=== PATIENT | female | born 1995 | race Two or more races ===

== ENCOUNTER 2018-04-14 19:34 | Inpatient (IN) | payer OTHER ==
[~2018-04-14] VITALS: Ht 167.6 cm; Wt 65.8 kg
--- NOTE | 2018-04-14 19:36 | NUR ---
PT TO ER BED 11. BIBRA FROM HOME C/O PT AMS X 3 HOURS PER FAMILY. PER EMS FSBS "HI". NOTED PT SINUS TACH ON THE MONITOR AT 142, RESP SHALLOW/TACHYPNEIC AT 32, B/P 127/69, RECTAL TEMP 95.8. PT IS UNRESPONSIVE AT THIS TIME. MD AT BEDSIDE FOR EVAL.
--- NOTE | 2018-04-14 19:38 | NUR ---
20G IV TO R HAND X 1 ATTEMPT USING ASEPTIC TECH. IV FLUSHES EASILY WITH NS, NO S/S INFILTRATION NOTED AT THIS TIME.
--- NOTE | 2018-04-14 19:40 | NUR ---
PT FSBS AT BEDSIDE ">600". MD AT BEDSIDE AND AWARE.
--- NOTE | 2018-04-14 19:41 | NUR ---
18G IV TO L AC X 1 ATTEMPT USING ASEPTIC TECH, BLOOD HANDED OVER TO THE LAB AT BEDSIDE. IV FLUSHES EASILY WITH NS, NO S/S INFILTRATION NOTED AT THIS TIME.
--- NOTE | 2018-04-14 19:50 | NUR ---
RT AT BEDSIDE TO DRAW ABG PER MD ORDERS.
[2018-04-14 20:00] LABS: ABG BASE EXCESS -34.4 mmol/L; ABG OXYGEN SATURATION 97.7 % (92.0-98.5); ABG PCO2 10.7 mmHg (35.0-45.0); ABG PH 6.716 (7.350-7.450); ABG PO2 142.9 mmHg (75.0-100.0); COHb 0.3 % (0.5-1.5); MetHb 0.8 % (0.0-1.5); O2Hb 96.6 % (94.0-97.0); SITE, ABG Right Radial; VENT MODE, BG RM AIR
[2018-04-14] MEDS ORDERED: IV NS 0.9% 1,000 ML IV ONE ×2 (20:00→20:30)
[2018-04-14] MEDS ORDERED: IV NS 0.9% 1,000 ML BAG IV ONE (20:00)
[2018-04-14] MEDS ORDERED: ONDANSETRON HCL/PF 4 MG/2 ML VIAL IVP ONE (20:00)
[2018-04-14] MEDS ORDERED: ONDANSETRON HCL/PF 4 MG/2 ML VIAL ONE (20:04)
[2018-04-14] MEDS ORDERED: SODIUM BICARBONATE SYR 50 MEQ/50 ML DISP.SYRIN ONE ×2 (20:09→23:07)
[2018-04-14 20:10] LABS: ALANINE AMINOTRANSFERASE 17 U/L (12-78); ALBUMIN 4.7 g/dL (3.4-5.0); ALKALINE PHOSPHATASE 217 U/L (46-116); ASPARTATE AMINOTRANSFERASE 11 U/L (15-37); BILIRUBIN,DIRECT 0.1 mg/dL (0.0-0.2); BILIRUBIN,TOTAL 0.3 mg/dL (0.2-1.0); CALCIUM, SERUM 10.1 mg/dL (8.5-10.1); CREATININE 2.2 mg/dL (0.6-1.3); POTASSIUM 5.6 mmol/L (3.5-5.1); TOTAL PROTEIN, SERUM 10.1 g/dL (6.4-8.2); UREA NITROGEN, BLOOD 37 mg/dL (7-18)
--- NOTE | 2018-04-14 20:12 | NUR ---
CALLED [facility] FOR PANEL CALL AND DR BOWDEN WAS PAGED.
[2018-04-14 20:15] LABS: GLUCOSE 849 mg/dL (74-106)
[2018-04-14] MEDS ORDERED: INSULIN REGULAR, HUMAN 100 UNIT in IV NS 0.9% 99 ML IV STA ×2 (20:17)
[2018-04-14 20:18] LABS: APPEARANCE,URINE CLEAR (CLEAR); BILIRUBIN,URINE NEGATIVE (NEGATIVE); BLOOD, URINE 3+ Ery/uL (NEGATIVE); COLOR,URINE YELLOW (YELLOW); KETONES,URINE 3+ (NEGATIVE); LEUKOCYTE ESTERASE ,URINE NEGATIVE (NEGATIVE); NITRITE, URINE NEGATIVE (NEGATIVE); PH,URINE 5.5 (5.0-8.0); PROTEIN,URINE 1+ mg/dl (NEGATIVE); UGLUCOSE 3+ mg/dL (NEGATIVE); UROBILINOGEN,URINE 0.2 EU/dL (0.2)
--- NOTE | 2018-04-14 20:21 | NUR ---
16FR F/C INSERTED USING INSTRUCTIONAL COORDINATOR, 1800ML CLEAR URINE RETURN NOTED. URINE SPECIMEN OBTAINED AND SENT TO THE LAB.
[2018-04-14] MEDS ORDERED: INSULIN REGULAR, HUMAN 100 UNIT/ML 10 ML VIAL ONE (20:22)
[2018-04-14 20:27] LABS: HEMATOCRIT 57 % (33-45); HEMOGLOBIN 17.6 g/dL (11.5-14.8); MEAN CORPUSCULAR VOLUME 97 fL (82-100); RED BLOOD CELL COUNT(AUTO) 5.89 MIL/uL (4.0-5.2); WHITE BLOOD COUNT (AUTO) 35.2 K/uL (4.3-11.0)
[2018-04-14 20:28] LABS: BASOPHILS % (AUTO) 0.7 % (0.0-2.0); EOSINOPHILS % (AUTO) 0.1 % (0.0-6.0); LYMPHOCYTES % (AUTO) 7.4 % (20.0-44.0); MEAN CORPUSCULAR HEMOGLOBIN 30 PG (26.0-33.0); MEAN CORPUSCULAR HGB CONC 31 g/dl (31.0-36.0); MONOCYTES % (AUTO) 7.6 % (2.0-12.0); NEUTROPHILS # (AUTO) 29.6 /CMM (1.8-8.9); NEUTROPHILS % (AUTO) 84.2 % (43.0-81.0); PLATELET COUNT (AUTO) 482 /CMM (150-450); RDW COEFFICIENT OF VARIATION 14.5 (11.5-15.0)
[2018-04-14 20:29] LABS: BASOPHILS # (AUTO) 0.2 /CMM (0.0-0.2); CHLORIDE 91 mmol/L (98-107); LYMPHOCYTES # (AUTO) 2.6 /CMM (0.8-4.8); MONOCYTES # (AUTO) 2.7 /CMM (0.1-1.30); SODIUM SERUM 133 mmol/L (136-145)
[2018-04-14 20:30] LABS: CARBON DIOXIDE 3 mmol/L (21-32)
[2018-04-14] MEDS ORDERED: SODIUM BICARBONATE 5 MEQ/10 ML DISP.SYRIN IV ONE (20:30)
[2018-04-14 20:31] LABS: BAND % (MANUAL) 9 % (0.0-5.0); LYMPHOCYTES % (MANUAL) 5 % (16-48); MONOCYTES % (MANUAL) 10 % (0-11.0); NEUTROPHILS % (MANUAL) 74 (42-76); REACTIVE LYMPHOCYTES 2 % (0-0)
[2018-04-14 20:36] LABS: BACTERIA,URINE None seen /HPF (None Seen); RBC,URINE 0-2 /HPF (0-2); SQUAMOUS EPITHELIAL CELL,UR 0-2 /HPF (None Seen); WBC,URINE 0-2 /HPF (0-3)
[2018-04-14 20:37] LABS: ALCOHOL, BLOOD < 3 mg/dL (0-0)
[2018-04-14 20:37] LABS: FINE GRANULAR CASTS,URINE Few /LPF (None Seen); URINE AMORPHOUS URATE Many /HPF (None Seen)
[2018-04-14] MEDS ORDERED: TRAZ-182 PO (20:57)
[2018-04-14] MEDS ORDERED: INSU100I24 SQ (20:57)
[2018-04-14] MEDS ORDERED: PARO20TA7 PO (21:01)
[2018-04-14] MEDS ORDERED: ENAL5TAB PO (21:01)
--- NOTE | 2018-04-14 21:12 | NUR ---
REPORT GIVEN TO BALDO CAVAZOS FOR CONTINUATION OF CARE.
--- NOTE | 2018-04-14 21:17 | NUR ---
RN NOTES REPORT RECEIVED FROM LENS INSERTERDIRK VALENTINE
--- NOTE | 2018-04-14 21:25 | NUR ---
RN NOTES PATIENT ARRIVED IN THE UNIT VIA GURNEY. CURRENTLY LETHARGIC, ONLY RESPONSIVE TO PAIN. PT IS SINUS TACH ON THE MONITOR, HR 120-130'S. ON ROOM AIR SATURATING 100%, TACHYPNEIC WITH SHALLOW BREATHING BUT NO OTHER S/S OF RESP DISTRESS. SKIN CHECKED WITH 2ND RN MARYAM. SMITH CATH INTACT. RIGHT HAND 20G AND LEFT AC 18G WITH BICARB 100MEQ + 1/2NS 500MLS @ 250MLS/HR AND INSULIN DRIP @ 8.25MLS/HR; IV LINES FLUSHED AND PATENT, NO S/S OF INFILTRATION/INFECTION, DRESSINGS CDI. WILL RECHECK BLOOD SUGAR. BED LOW AND LOCKED, SIDERAILS UP, CALL LIGHT WITHIN REACH, BED ALARM ON. WILL CLOSELY MONITOR
--- NOTE | 2018-04-14 21:25 | NUR ---
PT TRANSPORTED VIA STRETCHER TO ICU 261 ON VOCATIONAL REHABILITATION TECHNICIAN WITH RN PER ACLS PROTOCOL. VSS.
[2018-04-14 21:35] VITALS: BP 133/98
[2018-04-14 21:36] VITALS: BP 133/98
[2018-04-14 22:00] VITALS: BP 88/57
[2018-04-14 22:02] VITALS: BP 95/59
[2018-04-14] MEDS ORDERED: ENAL20TA70 PO (22:04)
[2018-04-14] MEDS ORDERED: INSU100I4 SQ (22:04)
[2018-04-14] MEDS ORDERED: Sodium Bicarbonate 100 MEQ in IV 1/2NS 1000 ML 1,000 ML IV PRN (22:30)
[2018-04-14] MEDS ORDERED: ACETAMINOPHEN 325 MG TABLET PO PRN (22:30)
[2018-04-14] MEDS ORDERED: MORPHINE SULFATE INJ 2 MG/ML DISP.SYRIN IV PRN (22:30)
[2018-04-14 22:58] VITALS: BP 88/71
--- NOTE | 2018-04-14 23:00 | NUR ---
RN NOTES CLARIFIED THE NEW INSULIN DRIP ORDER WITH DR BOWDEN. PER MD, INSULIN DRIP ON DKA PROTOCOL USING ALGORITHM 1. WILL INITIATE
[2018-04-14 23:01] VITALS: BP 95/57
[2018-04-14 23:02] LABS: EOSINOPHILS % (AUTO) 0.1 % (0.0-6.0); HEMATOCRIT 49 % (33-45); HEMOGLOBIN 15.6 g/dL (11.5-14.8); MEAN CORPUSCULAR HEMOGLOBIN 30 PG (26.0-33.0); MEAN CORPUSCULAR HGB CONC 32 g/dl (31.0-36.0); MEAN CORPUSCULAR VOLUME 94 fL (82-100); MONOCYTES % (AUTO) 2.1 % (2.0-12.0); NEUTROPHILS % (AUTO) 89.4 % (43.0-81.0); PLATELET COUNT (AUTO) 347 /CMM (150-450); RDW COEFFICIENT OF VARIATION 13.5 (11.5-15.0); RED BLOOD CELL COUNT(AUTO) 5.18 MIL/uL (4.0-5.2); WHITE BLOOD COUNT (AUTO) 31.9 K/uL (4.3-11.0)
[2018-04-14 23:03] LABS: BASOPHILS # (AUTO) 0.3 /CMM (0.0-0.2); LYMPHOCYTES # (AUTO) 2.3 /CMM (0.8-4.8); LYMPHOCYTES % (AUTO) 7.4 % (20.0-44.0); MONOCYTES # (AUTO) 0.7 /CMM (0.1-1.30); NEUTROPHILS # (AUTO) 28.5 /CMM (1.8-8.9)
[2018-04-14] MEDS: INSULIN REGULAR, HUMAN 100 UNIT in IV NS 0.9% 99 ML IV PRN ×2 (23:15)
[2018-04-14 23:16] LABS: ALANINE AMINOTRANSFERASE 16 U/L (12-78); ALBUMIN 3.9 g/dL (3.4-5.0); ALKALINE PHOSPHATASE 172 U/L (46-116); ASPARTATE AMINOTRANSFERASE 12 U/L (15-37); BILIRUBIN,TOTAL 0.3 mg/dL (0.2-1.0); CALCIUM, SERUM 8.2 mg/dL (8.5-10.1); CHLORIDE 105 mmol/L (98-107); CREATININE 1.7 mg/dL (0.6-1.3); MAGNESIUM 2.1 mg/dL (1.8-2.4); PHOSPHORUS 3.2 mg/dL (2.5-4.9); POTASSIUM 3.5 mmol/L (3.5-5.1); SODIUM SERUM 141 mmol/L (136-145); TOTAL PROTEIN, SERUM 8.3 g/dL (6.4-8.2); UREA NITROGEN, BLOOD 35 mg/dL (7-18)
[2018-04-14 23:25] LABS: CARBON DIOXIDE 5 mmol/L (21-32); GLUCOSE 522 mg/dL (74-106)
[2018-04-14] MEDS: METOCLOPRAMIDE HCL 10 MG/2 ML VIAL IV SCH (23:25)
[2018-04-14] MEDS ORDERED: INSULIN GLARGINE, 100 UNIT/ML CARTRIDGE SQ SCH (23:30)
[2018-04-14 23:39] LABS: ABG BASE EXCESS -28.7 mmol/L; ABG OXYGEN SATURATION 97.7 % (92.0-98.5); ABG PCO2 8.2 mmHg (35.0-45.0); ABG PH 6.946 (7.350-7.450); ABG PO2 126.9 mmHg (75.0-100.0); COHb 0.3 % (0.5-1.5); MetHb 0.9 % (0.0-1.5); O2Hb 96.5 % (94.0-97.0); SITE, ABG Right Radial; VENT MODE, BG ROOM AIR
[2018-04-14 23:52] LABS: LIPASE 6498 U/L (73-393)
[2018-04-15] VITALS (25 sets, daily range): BP systolic 102–126; BP diastolic 29–76
[2018-04-15] MEDS ORDERED: POTASSIUM CHLORIDE 20 MEQ TAB.PRT.SR PO ONE
[2018-04-15] MEDS ORDERED: VANCOMYCIN 1 GM in IV NS 0.9% 250 ML IV ONE ×2
--- NOTE | 2018-04-15 00:15 | NUR ---
RN NOTES DR BOWDEN IN THE UNIT TO ASSESS THE PATIENT AND TO TALK TO THE FAMILY
[2018-04-15] MEDS ORDERED: VANCOMYCIN 1 GM VIAL ONE (00:31)
[2018-04-15] MEDS ORDERED: PIPERACILLIN /TAZOBACTAM 3.375 G VIAL IV ONE ×2 (00:59→04:46)
[2018-04-15] MEDS ORDERED: ACETAMINOPHEN 650 MG/SUPP.RECT RC PRN (01:00)
[2018-04-15] MEDS: PIPERACILLIN /TAZOBACTAM 3.375 G in IV NS 0.9% 50 ML IV SCH ×2 (01:02→04:50)
[2018-04-15] MEDS: POTASSIUM CL. PREMIX PERIPHER. 50 ML IV SCH ×9 (01:27→21:53)
--- NOTE | 2018-04-15 02:21 | NUR ---
RN NOTES PATIENT APPEARS AGITATED AND IN PAIN. CURRENTLY CRYING, MOANING, AND HEART RATE IS GOING UP TO 140'S. WILL ADMINISTER PRN MORPHINE 2MG IVP
[2018-04-15] MEDS: METOCLOPRAMIDE HCL 10 MG/2 ML VIAL IV SCH ×4 (04:49→22:33)
[2018-04-15 05:16] LABS: HEMATOCRIT 44 % (33-45)
[2018-04-15 05:17] LABS: RDW COEFFICIENT OF VARIATION 14.7 (11.5-15.0)
[2018-04-15 05:20] LABS: WHITE BLOOD COUNT (AUTO) 27.7 K/uL (4.3-11.0)
[2018-04-15 05:21] LABS: HEMOGLOBIN 14.7 g/dL (11.5-14.8); MEAN CORPUSCULAR HEMOGLOBIN 30 PG (26.0-33.0); MEAN CORPUSCULAR VOLUME 90 fL (82-100); RED BLOOD CELL COUNT(AUTO) 4.89 MIL/uL (4.0-5.2)
[2018-04-15 05:22] LABS: BASOPHILS % (AUTO) 0.7 % (0.0-2.0); LYMPHOCYTES % (AUTO) 8.2 % (20.0-44.0); MEAN CORPUSCULAR HGB CONC 33 g/dl (31.0-36.0); MONOCYTES % (AUTO) 11.2 % (2.0-12.0); NEUTROPHILS % (AUTO) 79.9 % (43.0-81.0); PLATELET COUNT (AUTO) 334 /CMM (150-450)
[2018-04-15 05:23] LABS: BASOPHILS # (AUTO) 0.2 /CMM (0.0-0.2); LYMPHOCYTES # (AUTO) 2.3 /CMM (0.8-4.8); MONOCYTES # (AUTO) 3.1 /CMM (0.1-1.30); NEUTROPHILS # (AUTO) 22.2 /CMM (1.8-8.9)
--- NOTE | 2018-04-15 05:30 | NUR ---
RN NOTES NOTIFIED DR BOWDEN OF CURRENT BLOOD SUGAR 213. PER , D/C CURRENT IVF AND START D5 1/2NS @ 125MLS/HR
[2018-04-15 05:45] LABS: ALBUMIN 3.5 g/dL (3.4-5.0); BILIRUBIN,TOTAL 0.5 mg/dL (0.2-1.0); CALCIUM, SERUM 8.9 mg/dL (8.5-10.1); CREATININE 1.7 mg/dL (0.6-1.3); MAGNESIUM 1.8 mg/dL (1.8-2.4); POTASSIUM 3.4 mmol/L (3.5-5.1); TOTAL PROTEIN, SERUM 7.6 g/dL (6.4-8.2)
[2018-04-15] MEDS ORDERED: PIPERACILLIN /TAZOBACTAM 3.375 G in IV NS 0.9% 50 ML IV SCH (06:00)
[2018-04-15 06:08] LABS: PHOSPHORUS 1.1 mg/dL (2.5-4.9)
--- NOTE | 2018-04-15 06:30 | NUR ---
RN CLOSING NOTES PT REMAINS STABLE OF THE MOMENT. INSULIN DRIP IS CURRENTLY 1UNIT/HR. D5 1/2 NS WITH 1AMP BICARB @ 125MLS/HR TO BE STARTED. ALL DUE MEDS GIVEN, AM CARE PROVIDED. WILL ENDORSE BARBRA TO AM RN
[2018-04-15] MEDS ORDERED: SODIUM BICARBONATE SYR 50 MEQ/50 ML DISP.SYRIN ONE (06:31)
[2018-04-15] MEDS: Sodium Bicarbonate 50 MEQ in IV D5/0.45 NACL 1,000 ML IV SCH ×3 (06:42→23:46)
[2018-04-15 06:48] LABS: ABG BASE EXCESS -16.3 mmol/L; ABG OXYGEN SATURATION 97.2 % (92.0-98.5); ABG PCO2 17.9 mmHg (35.0-45.0); ABG PH 7.269 (7.350-7.450); ABG PO2 101.9 mmHg (75.0-100.0); AaDO2 26.4 mmHg; COHb 0.3 % (0.5-1.5); MetHb 0.7 % (0.0-1.5); O2Hb 96.2 % (94.0-97.0); SITE, ABG Right Radial; VENT MODE, BG ROOM AIR
--- NOTE | 2018-04-15 07:30 | NUR ---
ICU/RN: Pt received, lethargic, responds to name and touch, IVF infusing well. Breathing even and unlabored, O2 sat 99-100% on RA. FC draining clear, yellow urine to gravity. Safety measures in place, will cont to monitor pt.
[2018-04-15 07:33] LABS: CHOLESTEROL 191 mg/dL (<200); HDL CHOLESTEROL 49 mg/dL (40-60); LDL 121 mg/dL (0-99); TRIGLYCERIDES 149 mg/dL (30-150)
[2018-04-15 07:46] LABS: INR 0.91 (0.87-1.13)
[2018-04-15] MEDS: BLOOD SUGAR DIAGNOSTIC 1 EACH STRIP IN SCH ×16 (08:06→23:37)
[2018-04-15] MEDS: PANTOPRAZOLE 40 MG VIAL IV SCH (08:38)
[2018-04-15] MEDS: Potassium Phosphate meq 11 MEQ in IV D5W 100 ML IV SCH ×2 (08:38→10:44)
[2018-04-15 09:33] LABS: CALCIUM, SERUM 8.5 mg/dL (8.5-10.1); CREATININE 1.6 mg/dL (0.6-1.3)
[2018-04-15] MEDS: PIPERACILLIN /TAZOBACTAM 3.375 G in IV D5W 50 ML IV SCH ×3 (11:01→23:47)
[2018-04-15 12:15] LABS: BAND % (MANUAL) 15 % (0.0-5.0); LYMPHOCYTES % (MANUAL) 13 % (16-48); MONOCYTES % (MANUAL) 13 % (0-11.0); NEUTROPHILS % (MANUAL) 59 (42-76)
[2018-04-15 12:41] LABS: CALCIUM, SERUM 8.5 mg/dL (8.5-10.1); CREATININE 1.5 mg/dL (0.6-1.3); POTASSIUM 3.5 mmol/L (3.5-5.1)
--- NOTE | 2018-04-15 13:15 | NUR ---
ICU/RN: Cary Palencia, MACHINE PRESSER at bedside; updated on pt status. Labs and replacements discussed. Family at bedside. New orders noted and carried out.
[2018-04-15 15:32] LABS: APPEARANCE,URINE CLEAR (CLEAR); BILIRUBIN,URINE 1+ (NEGATIVE); BLOOD, URINE 2+ Ery/uL (NEGATIVE); COLOR,URINE YELLOW (YELLOW); KETONES,URINE 3+ (NEGATIVE); LEUKOCYTE ESTERASE ,URINE NEGATIVE (NEGATIVE); NITRITE, URINE NEGATIVE (NEGATIVE); PH,URINE 5.5 (5.0-8.0); PROTEIN,URINE TRACE mg/dl (NEGATIVE); UGLUCOSE 1+ mg/dL (NEGATIVE); UROBILINOGEN,URINE 0.2 EU/dL (0.2)
--- NOTE | 2018-04-15 16:37 | NUR ---
ICU/RN: Called lab regarding 1630 BMP draw, per director labor standards, cancelled because it is a duplicate. Informed them that it is not a duplicate, but a timed order. Re-entered as stat order, awaiting dewaxer arrival for blood draw.
--- NOTE | 2018-04-15 17:17 | NUR ---
ICU/RN: Called lab to f/u stat blood draw. Per tech, homicide squad lieutenant is on the way.
[2018-04-15 17:40] LABS: CALCIUM, SERUM 8.8 mg/dL (8.5-10.1); CREATININE 1.7 mg/dL (0.6-1.3)
--- NOTE | 2018-04-15 17:45 | NUR ---
ICU/RN: Dr Cardona in for ID consult; updated on temps, cultures sent, noted with facial redness to R side; photographed.
[2018-04-15] MEDS: ONDANSETRON HCL/PF 4 MG/2 ML VIAL IVP PRN ×2 (17:49→22:33)
[2018-04-15] MEDS ORDERED: FEE PK DOSING 1 MIN EA MC ONE (17:50)
[2018-04-15] MEDS: VANCOMYCIN 0.75 GM in IV NS 0.9% 250 ML IV SCH (19:06)
[2018-04-15 20:44] LABS: CALCIUM, SERUM 8.4 mg/dL (8.5-10.1); CREATININE 1.7 mg/dL (0.6-1.3); POTASSIUM 3.2 mmol/L (3.5-5.1)
--- NOTE | 2018-04-15 21:00 | NUR ---
REC'D PT. IN BED W/EYES CLOSED. PT.IS LETHARGIC, BUT WHEN AWOKEN, PT. MOANS & STARTS YELLING FOR "WATER". PT'S FAMILY AT BS. PT. HAS BEEN A GEOFF SINCE 11 YRS OLD. PT. CANNOT BE REORIENTED DUE TO HER LOC. SBP'S ARE ELEVATED WHEN PT. IS REPOSITIONED OR AWOKEN. ST/TEENS. PT.IS ON ROOM AIR & LUNG RODRIGUEZ ARE CLEAR TO AUSC. ACCU CHECKS Q ONE HR. BMP'S Q 4 HRS. LOW GRADE TEMPS NOTED.(RECTALLY). SKIN INTACT, EXCEPT FACE IS FLUSHED. SMITH CATH TO GRAVITY. LAST RUN OF KCL ADM. ALL PIV'S ARE PATENT TO FLUSH. CONT. POC.
[2018-04-15 21:37] LABS: BACTERIA,URINE Rare /HPF (None Seen); SQUAMOUS EPITHELIAL CELL,UR Rare /HPF (None Seen); URIC ACID CRYSTALS,URINE Few /HPF (None Seen); WBC,URINE 0-3 /HPF (0-3)
[2018-04-15 21:38] LABS: YEAST,URINE Few /HPF (None Seen)
[2018-04-15 23:06] LABS: CALCIUM, SERUM 8.4 mg/dL (8.5-10.1); CREATININE 1.7 mg/dL (0.6-1.3); POTASSIUM 3.1 mmol/L (3.5-5.1)
[2018-04-16] VITALS (26 sets, daily range): BP systolic 85–147; BP diastolic 38–81
[2018-04-16] MEDS: BLOOD SUGAR DIAGNOSTIC 1 EACH STRIP IN SCH ×20 (00:16→23:00)
[2018-04-16] MEDS: ONDANSETRON HCL/PF 4 MG/2 ML VIAL IVP PRN ×2 (03:47→08:22)
[2018-04-16] MEDS: METOCLOPRAMIDE HCL 10 MG/2 ML VIAL IV SCH ×4 (03:48→22:53)
[2018-04-16 05:07] LABS: HEMATOCRIT 37 % (33-45); HEMOGLOBIN 12.6 g/dL (11.5-14.8); MEAN CORPUSCULAR HEMOGLOBIN 30 PG (26.0-33.0); MEAN CORPUSCULAR HGB CONC 34 g/dl (31.0-36.0); MEAN CORPUSCULAR VOLUME 89 fL (82-100); PLATELET COUNT (AUTO) 278 /CMM (150-450); RDW COEFFICIENT OF VARIATION 12.8 (11.5-15.0); RED BLOOD CELL COUNT(AUTO) 4.21 MIL/uL (4.0-5.2); WHITE BLOOD COUNT (AUTO) 14.3 K/uL (4.3-11.0)
[2018-04-16 05:08] LABS: BASOPHILS % (AUTO) 0.4 % (0.0-2.0); EOSINOPHILS % (AUTO) 0.2 % (0.0-6.0); LYMPHOCYTES % (AUTO) 7.9 % (20.0-44.0); MONOCYTES % (AUTO) 10.5 % (2.0-12.0); NEUTROPHILS % (AUTO) 81.2 % (43.0-81.0)
[2018-04-16 05:13] LABS: CREATININE 1.7 mg/dL (0.6-1.3)
[2018-04-16 05:14] LABS: POTASSIUM 2.8 mmol/L (3.5-5.1)
[2018-04-16 05:17] LABS: MAGNESIUM 1.5 mg/dL (1.8-2.4); PHOSPHORUS 1.5 mg/dL (2.5-4.9)
[2018-04-16] MEDS: PIPERACILLIN /TAZOBACTAM 3.375 G in IV D5W 50 ML IV SCH ×4 (05:34→23:08)
[2018-04-16] MEDS: VANCOMYCIN 0.75 GM in IV NS 0.9% 250 ML IV SCH (06:29)
[2018-04-16] MEDS: INSULIN REGULAR, HUMAN 100 UNIT in IV NS 0.9% 99 ML IV PRN ×8 (06:37→23:04)
--- NOTE | 2018-04-16 06:45 | NUR ---
SIMPLEX PRINTER INSTALLER - PT. CONT. TO REMAIN LETHARGIC. Q ONE HR BS'S NOTED. INSULIN GTT. CURRENTLY AT ONE UNIT/HR. ALL IVF'S INFUSING WELL. NO S/S OF INFILTRATION. PT. IS VERY RESTLESS & MOVING ALL OVER BED. 3 BEDBATHS ADM. IN SHIFT. VSS. PT'S BODY IS VERY WARM/HOT TO TOUCH. WHEN STAFF APPRAISER & BONDERIZER OPERATOR ATTEMPTED TO PLACE COOL TOWELS UPON HER, PT. BECAME VERY UPSET & SCREECHING ALOUD. PT. CALMS DOWN SOON YOU STOP ADL'S. PT.HAD N&V FOR A TOTAL OF 4 TIMES. ZOFRAN/REGLAN ADM. X 2 IN 12HR.SHIFT. OTHERWISE, PT.IS RESTING W/EYES CLOSED. CONT.POC. VERBAL REPORT ENDORSED TO HEATHER CAVAZOS.
--- NOTE | 2018-04-16 07:10 | NUR ---
RN INITIAL NOTES RECEIVED PT A/OX1, DOZES ON AND OFF. ON ROOM AIR. NO RESPIRATORY DISTRESS NOTED. NO SOB NOTED. NO SIGNS OF PAIN NOTED. IV LINES PLACE. ON INSULIN DRIP AT 2UNITS/HR. BLOOD SUGAR CHECK Q1. BMP Q4. ON D5 1/2 NS + SODIUM BICARB 50MEQ AT 125ML/HR. WILL MONITOR FOR EPISODE OF N/V. FC IN PLACE. NO HEMATURIA NOTED. WILL CLOSELY MONITOR.
[2018-04-16] MEDS: PANTOPRAZOLE 40 MG VIAL IV SCH (08:20)
[2018-04-16] MEDS: Sodium Bicarbonate 50 MEQ in IV D5/0.45 NACL 1,000 ML IV SCH (08:32)
[2018-04-16] MEDS ORDERED: Sodium Bicarbonate 50 MEQ in IV D5/0.45 NACL 1,000 ML IV PRN (09:37)
[2018-04-16 10:01] LABS: CALCIUM, SERUM 8.8 mg/dL (8.5-10.1); CREATININE 1.7 mg/dL (0.6-1.3)
[2018-04-16 10:06] LABS: POTASSIUM 2.5 mmol/L (3.5-5.1)
--- NOTE | 2018-04-16 10:15 | NUR ---
RN NOTES CALLED KELLY MILNER DNP REGARDING BMP RESULT: SODIUM 147, POTASSIUM 2.5, BUN 23, CREA 1.7, PHOS 1.5, MAGNESIUM 1.5. PT ON INSULIN DRIP. ON IVF: D5 1/2 NS + SODIUM BICARB 50MEQ AR 125ML/HR. PER KELLY, HE WILL REVIEW PT'S PROFILE FOR ORDERS. WILL CLOSELY MONITOR.
[2018-04-16] MEDS: Magnesium 1GM/D5W 100ML PREMIX 100 ML IV SCH ×2 (10:20→11:23)
[2018-04-16] MEDS ORDERED: INSULIN REGULAR, HUMAN 100 UNIT in IV NS 0.9% 99 ML IV PRN ×2 (10:30)
[2018-04-16] MEDS ORDERED: IV NS 0.9% 1,000 ML IV PRN (10:30)
[2018-04-16] MEDS ORDERED: Potassium Chloride 40 MEQ in IV D5/0.45 NACL 1,000 ML IV PRN (10:30)
[2018-04-16] MEDS: POTASSIUM CL. PREMIX PERIPHER. 50 ML IV SCH ×4 (10:46→13:49)
[2018-04-16] MEDS: Potassium Phosphate meq 11 MEQ in IV D5W 100 ML IV SCH ×4 (12:31→21:25)
[2018-04-16] MEDS: DEXTROSE IV PRN (17:06)
[2018-04-16] MEDS: POTASSIUM CHLORIDE IV PRN (17:06)
[2018-04-16] MEDS: SODIUM CHLORIDE IV PRN (17:06)
[2018-04-16 17:58] LABS: CALCIUM, SERUM 8.2 mg/dL (8.5-10.1); CREATININE 1.4 mg/dL (0.6-1.3); MAGNESIUM 1.9 mg/dL (1.8-2.4); PHOSPHORUS 1.8 mg/dL (2.5-4.9)
[2018-04-16 18:07] LABS: POTASSIUM 2.8 mmol/L (3.5-5.1)
--- NOTE | 2018-04-16 18:15 | NUR ---
RN NOTES CALLED KELLY MILNER DNP REGARDING BMP RESULT: SODIUM 147, POTASSIUM 2.8, ANION GAP 17, BUN 18, CREA 1.4, PHOS 1.8, MAG 1.9. PT RESTARTED ON INSULIN DRIP. PT ON IVF: D10 1/2 NS + KCL 40MEQ AT 150ML/HR. PT GIVEN TOTAL OF KCL 40MEQ IV AND PT ON 3RD BAG OF POTASSIUM PHOSPHATE 7.5MMOL IV. AWAITING FOR CALL BACK.
[2018-04-16] MEDS: VANCOMYCIN 0.75 GM in IV D5W 250 ML IV SCH (18:45)
[2018-04-16] MEDS ORDERED: POTASSIUM CHLORIDE 20 MEQ POWDER PACKET GT ONE (19:00)
--- NOTE | 2018-04-16 19:00 | NUR ---
RN CLOSING NOTES PT REMAINS ON INSULIN DRIP. BLOOD SUGAR CHECKED Q2. IVF INFUSING. PT A/OX1. DENIES ANY PAIN. ALL NEEDS ANTICIPATED AND MEET. WILL ENDORSE FOR CONTINUITY OF CARE.
--- NOTE | 2018-04-16 19:35 | NUR ---
RN NOTES RECEIVED PT ASLEEP ALERT ORIENTED X 2. ENCOURAGED AND VERBALIZED FEELINGS. DENIES PAIN. PT IS CALM AND COOPERATIVE. NO ACUTE RESP DISTRESS IN ROOM AIR SATURATION 99%. SR- ST ON TELE MONITOR. IV SITE ON LAC WITH 3RD BAG OF K-PHOS RUNNING AND IV SITE ON RAC WITH D10 + NACL 77 MEQ + KCL 40 MEQ @ 150 ML/HR AND INSULIN DRIP @ 4.4 ML/HR. PT BACK TO SPEECH ENCOURAGED TO REPOSITIONED WHILE ON BED. KEPT CLEAN AND DRY. CALL LIGHT KEPT WITHIN EASY REACH REMINDED TO USED FOR ASSISTANCE. WILL CONTINUE POC.
[2018-04-16 21:04] LABS: CALCIUM, SERUM 7.8 mg/dL (8.5-10.1); CREATININE 1.5 mg/dL (0.6-1.3); POTASSIUM 3.1 mmol/L (3.5-5.1)
[2018-04-17] VITALS (20 sets, daily range): BP systolic 96–125; BP diastolic 48–87
--- NOTE | 2018-04-17 00:10 | NUR ---
RN NOTES INFORMED MD REGARDING BMP RESULT. POTASSIUM 3.1, CHLORIDE 112 CO2 18 GLUCOSE 228 CALCIUM 7.8. WITH NEW ORDER TO GIVE 20 MEQ OF KCL IV NOTED AND CARRIED OUT ORDERS.
[2018-04-17] MEDS: POTASSIUM CL. PREMIX PERIPHER. 50 ML IV SCH ×2 (00:52→01:50)
[2018-04-17] MEDS: BLOOD SUGAR DIAGNOSTIC 1 EACH STRIP IN SCH ×10 (01:23→20:42)
[2018-04-17] MEDS: INSULIN REGULAR, HUMAN 100 UNIT in IV NS 0.9% 99 ML IV PRN ×8 (01:27→13:13)
--- NOTE | 2018-04-17 04:40 | NUR ---
RN NOTES CALLED DR. IGNACIO MADE AWARE THAT WE RUN OUT OF D10 1/2 NS WITH 40 MEQ KCL, 77MEQ NACL, PER MD ITS OK TO USE D5 1/2 WITH 40 MEQ KCL UNTIL PHARMACY ARRIVE AT 7AM. [facility] AWARE.
[2018-04-17 04:51] LABS: CALCIUM, SERUM 7.5 mg/dL (8.5-10.1); CREATININE 1.3 mg/dL (0.6-1.3); MAGNESIUM 1.7 mg/dL (1.8-2.4)
[2018-04-17 04:54] LABS: POTASSIUM 2.5 mmol/L (3.5-5.1)
[2018-04-17] MEDS: METOCLOPRAMIDE HCL 10 MG/2 ML VIAL IV SCH ×4 (05:03→22:02)
[2018-04-17] MEDS: PIPERACILLIN /TAZOBACTAM 3.375 G in IV D5W 50 ML IV SCH ×3 (05:04→18:45)
--- NOTE | 2018-04-17 05:40 | NUR ---
RN NOTES CALLED DR. IGNACIO TO INFORMED ABOUT CRITICAL LAB POTASSIUM 2.5 AND PRO CALCITONIN 5.12 WAITING FOR THE CALL BACK.
[2018-04-17] MEDS: VANCOMYCIN 0.75 GM in IV D5W 250 ML IV SCH (06:04)
--- NOTE | 2018-04-17 06:20 | NUR ---
RN NOTES EXCHANGE CALLED AND CHECK IF MD CALLED BACK, PER EXCHAGE THEY WILL CALL HIM AGAIN.
--- NOTE | 2018-04-17 07:30 | NUR ---
RN NOTES DR. MILNER CALLED BACK INFORMED ABOUT THE PT CRITICAL LABS, K 2.5 WITH NEW ORDER TO GIVE KCL 60 MEQ PO ONCE, SOFT DIET, AND 2 GRAM MAGNESIUM IV, AND TO ADD PHOSPHORUS TO LAB IN AM NOTED AND CARRIED OUT
[2018-04-17] MEDS ORDERED: POTASSIUM CHLORIDE 20 MEQ TAB.PRT.SR PO ONE (08:00)
[2018-04-17] MEDS ORDERED: Magnesium 1GM/D5W 100ML PREMIX PIGGYBACK IV ONE (08:00)
[2018-04-17] MEDS: SODIUM CHLORIDE IV PRN (08:20)
[2018-04-17] MEDS: POTASSIUM CHLORIDE IV PRN (08:20)
[2018-04-17] MEDS: DEXTROSE IV PRN (08:20)
[2018-04-17] MEDS: Magnesium 1GM/D5W 100ML PREMIX 100 ML IV SCH ×2 (08:20→09:41)
[2018-04-17] MEDS: PANTOPRAZOLE 40 MG VIAL IV SCH (08:21)
[2018-04-17] MEDS: ONDANSETRON HCL/PF 4 MG/2 ML VIAL IVP PRN (08:21)
[2018-04-17] MEDS ORDERED: POTASSIUM PHOSPHATE MM 7.5 MMOL in IV D5W 100 ML IV SCH (11:30)
[2018-04-17] MEDS ORDERED: Potassium Chloride 40 MEQ in IV D5/0.45 NACL 1,000 ML IV PRN (12:00)
[2018-04-17 17:25] LABS: CALCIUM, SERUM 7.5 mg/dL (8.5-10.1); CREATININE 1.3 mg/dL (0.6-1.3); POTASSIUM 3.7 mmol/L (3.5-5.1)
[2018-04-17] MEDS ORDERED: DEXTROSE 50%-WATER 50 ML DISP.SYRIN IV PRN (18:00)
--- NOTE | 2018-04-17 19:30 | NUR ---
PT RECEIVED IN BED AWAKE ALERT WITH MOTHER AT BEDSIDE, PT SEEMS IRRITABLE, SAYS SHE WANTS TO GO HOME. NO ACUTE DISTRESS, NO COMPLAINTS OF PAIN. PT IS ON ROOM AIR 02SAT 98%. PT IS IN SR, BP WNL. CALL LIGHT WITHIN REACH, WILL CONTINUE TO MONITOR
--- NOTE | 2018-04-17 20:08 | NUR ---
PTS MOTHER DEMANDED THAT I CHECK PTS BLOOD SUGAR BECAUSE SHE ATE AND DRANK MILK AT APPROX 1800, BLOOD SUGAR WAS 286, PTS MOTHER REQUESTED THAT I COVER WITH REGULAR INSULIN SLIDING SCALE NOW AND RECHECK 2200 BLOOD SUGAR WHEN GIVING NIGHT TIME LANTUS
[2018-04-17] MEDS: INSULIN REGULAR, HUMAN 100 UNIT/ML 3 ML VIAL SQ PRN (20:45)
--- NOTE | 2018-04-17 21:32 | NUR ---
PT TRANSFERRED TO [facility] WITH ALL MEDS, WITHOUT INCIDENT, VSS NAD
[2018-04-17] MEDS ORDERED: INSULIN GLARGINE, 100 UNIT/ML CARTRIDGE SQ SCH (22:00)
--- NOTE | 2018-04-17 22:09 | NUR ---
PT IS ON VANCOMYCIN WITH D5W AND ZOSYN WITH D5W. IF PHARMACY COULD CHANGE THE ANTIBIOTICS TO HAVING NS INSTEAD, IT WOULD HELP TO KEEP THE BLOOD GLUCOSE CONTROLLED
[2018-04-18] MEDS: PIPERACILLIN /TAZOBACTAM 3.375 G in IV D5W 50 ML IV SCH ×2 (01:03→05:47)
[2018-04-18 04:17] VITALS: BP 113/78
[2018-04-18] MEDS: METOCLOPRAMIDE HCL 10 MG/2 ML VIAL IV SCH ×2 (05:13→10:30)
[2018-04-18] MEDS: INSULIN REGULAR, HUMAN 100 UNIT/ML 3 ML VIAL SQ PRN ×3 (05:49→12:04)
[2018-04-18] MEDS: BLOOD SUGAR DIAGNOSTIC 1 EACH STRIP IN SCH ×2 (06:10→12:04)
--- NOTE | 2018-04-18 06:52 | NUR ---
MS RN NOTES AWAKE & RESPONSIVE. NOT IN ANY DISTRESS. NO SOB NOTED. DENIES ANY PAIN OR DISCOMFORT AT THIS TIME. WITH IV-HL PATENT & INTACT. MONITORED ACCORDINGLY. CALL LIGHT WITHIN REACH. BED IN LOWEST POSITION. SR UP X2 FOR SAFETY. WILL ENDORSE TO NEXT SHIFT.
[2018-04-18 07:09] LABS: CALCIUM, SERUM 7.8 mg/dL (8.5-10.1); CREATININE 1.4 mg/dL (0.6-1.3); POTASSIUM 4.3 mmol/L (3.5-5.1)
--- NOTE | 2018-04-18 07:20 | NUR ---
RN NOTES PT IS SITTING UP IN BED, SLEEPING COMFORTABLY. PT ON RA, RESPIRATIONS ARE EVEN AND UNLABORED. IV ON RAC INTACT AND SL. NO SIGNS OF DISTRESS NOTED. SAFETY MEASURES ARE IN PLACE, CALL LIGHT IS IN REACH. WILL CONTINUE TO MONITOR.
[2018-04-18 08:00] VITALS: BP 112/78
[2018-04-18] MEDS: PANTOPRAZOLE 40 MG VIAL IV SCH (08:43)
[2018-04-18] MEDS ORDERED: INSULIN NPH, HUMAN ISOPHANE 100 UNIT/ML VIAL SQ SCH (09:00)
[2018-04-18] MEDS ORDERED: DOXY100C41 PO (13:32)
--- NOTE | 2018-04-18 14:00 | NUR ---
RN NOTES PT WAS DISCHARGED HOME IN STABLE CONDITION, ACCOMPANIED BY HER MOTHER. IV AND ID BAND WERE REMOVED. PT GIVEN DISCHARGE INSTRUCTIONS AND WAS TOLD TO F/U WITH PCP WITHIN 1-2 WEEKS OF DISCHARGE AND CONTINUE ALL MEDICATIONS ORDERED. PT WAS GIVEN NEW PRESCRIPTION TO HAVE FILLED AT PHARMACY FOR CONTINUATION OF ANTIBIOTIC COURSE. PT VERBALIZED UNDERSTANDING AND STATED SHE WOULD HAVE PRESCRIPTION FILLED AND F/U WITH HER PCP. BELONGINGS WERE RETURNED TO PT AND BELONGINGS LIST WAS SIGNED. PT REFUSED TO HAVE PHOTO DOCUMENTATION OF FACIAL REDNESS BECAUSE THE REDNESS HAD GONE AWAY. PT WAS BROUGHT DOWN TO LOBBY WITH ALL OF BELONGINGS.
== END 2018-04-18 14:00 | disposition home or self-care (01) | DRG 720 ==
LOC: ER 19:35 → ICU 20:31 → MED 04-17 21:12
PROVIDERS: ADMIT Internal Medicine; ATTEND Internal Medicine
DX: A41.9 Sepsis, unspecified organism (principal); N17.0 Acute kidney failure with tubular necrosis; J69.0 Pneumonitis due to inhalation of food and vomit; G92 Toxic encephalopathy; E10.10 Type 1 diabetes mellitus with ketoacidosis without coma; K31.84 Gastroparesis; K85.90 Acute pancreatitis without necrosis or infection, unspecified; E10.43 Type 1 diabetes mellitus with diabetic autonomic (poly)neuropathy; E83.42 Hypomagnesemia; E87.5 Hyperkalemia; K59.00 Constipation, unspecified; F32.9 Major depressive disorder, single episode, unspecified; E86.9 Volume depletion, unspecified; E87.6 Hypokalemia; L53.8 Other specified erythematous conditions; F90.9 Attention-deficit hyperactivity disorder, unspecified type; H53.149 Visual discomfort, unspecified; Z91.14 Patient's other noncompliance with medication regimen; E86.1 Hypovolemia
CPT/HCPCS: 36415; 36600; 71045-TC; 80048-TC; 80053-TC; 80061-TC; 80076-TC; 80202-TC; 80305; 81000-TC; 82010-TC; 82150-TC; 82803-TC; 82962-TC; 83605-TC; 83690-TC; 83735-TC; 84100-TC; 84703-TC; 85025-TC; 85610-TC; 87040-TC; 87081-TC; 87086-TC; A4216; A4217; A4606; A6253; C9113; G0480; J1815; J2270; J2405; J2543; J2765; J3370; J3475; J3480; J3490; J7030; J7040; J7050; J7060; Z7610